=== PATIENT | female | born 1985 | race Hispanic/Latino ===

== ENCOUNTER 2020-10-20 14:57 | Emergency (ER) | payer SELFPAY ==
[~2020-10-20] VITALS: Ht 157.5 cm; Wt 115.7 kg
[~2020-10-20 14:57] MED LIST: AZITHROMYCIN250 MG PO; PREDNISONE20 MG PO; TESSALON PERLE100 MG PO; TYLENOL WITH C1 EACH PO
== END 2020-10-20 16:29 | disposition home or self-care (01) ==
LOC: ER 15:21
DX: R42 Dizziness and giddiness (principal); E86.0 Dehydration; Z98.84 Bariatric surgery status
CPT/HCPCS: 93005; 99283